=== PATIENT | male | born 1965 | race African-American/Black ===

== ENCOUNTER 2018-06-22 08:40 | Emergency (ER) | payer BC ==
[2018-06-22 08:51] VITALS: BP 142/72; PULSE 89; TEMP 97.6; BMI 40.4
[2018-06-22] MEDS ORDERED: KETOROLAC TROMETHAMINE 30 MG/1 ML VIAL IVPUSH STA (09:12)
[2018-06-22] MEDS ORDERED: KETOROLAC TROMETHAMINE 30 MG/1 ML VIAL ONE (09:35)
--- NOTE | 2018-06-22 09:50 | PDOC ---
History of Present Illness - General Chief Complaint: Pain, Acute Stated Complaint: PAIN Time Seen by Provider: 06/22/18 08:48 History Source: Patient Exam Limitations: No Limitations - History of Present Illness Travel History: No Initial Comments: 06/22/18 10:07 53-year-old male with history of acid reflux and diverticulitis presents to ED with right upper quadrant pain which he describes as a sharp gnawing discomfort since yesterday without aggravating or alleviating factors. Patient denies nausea, fever, chills, back pain, change in urine pattern, change in bowel pattern, abdominal distention, recent injury. Patient states he took no medication the above and came to the ER. Timing/Duration: reports: constant Quality: reports: moderate, sharpness, other Abdominal Pain Onset Location: reports: RUQ Pain Radiation: reports: no radiation Activities at Onset: reports: none Aggravating Factors: improves with: None Alleviating Factors: improves with: None Past History - Travel Traveled outside of the country in the last 30 days: No Close contact w/someone who was outside of country & ill: No - Past Medical History Allergies/Adverse Reactions: Allergies Allergy/AdvReac Type Severity Reaction Status Date / Time moxifloxacin [From Avelox] Allergy Verified 06/22/18 08:42 Home Medications: Ambulatory Orders NK [No Known Home Medication] 06/22/18 COPD: No CHF: No HTN: No Lung CA: No - Surgical History Gastric Stapling: No - Immunization History Immunization Up to Date: No - Suicide/Smoking/Psychosocial Hx Smoking History: Never smoked Have you smoked in the past 12 months: No Information on smoking cessation initiated: No Hx Alcohol Use: No Drug/Substance Use Hx: No Patient Lives Alone: No Lives with/in: spouse/SO Abd/GI Specific PMHX - Complaint Specific PMHX Diverticulitis: Yes GERD: Yes Review of Systems - Review of Systems Able to Perform ROS?: Yes Constitutional: No: Symptoms Reported HEENTM: No: Symptoms Reported Respiratory: No: Symptoms reported Cardiac (ROS): No: Symptoms Reported ABD/GI: Yes: Abdominal cramping : No: Symptoms Reported Musculoskeletal: No: Symptoms Reported Integumentary: No: Symptoms Reported Neurological: No: Symptoms reported Hematologic/Lymphatic: No: Symptoms Reported *Physical Exam - Vital Signs Last Vital Signs Temp Pulse Resp BP Pulse Ox 97.6 F 89 18 142/72 98 06/22/18 08:44 06/22/18 08:44 06/22/18 08:44 06/22/18 08:44 06/22/18 08:44 - Physical Exam General Appearance: Yes: Nourished, Appropriately Dressed. No: Apparent Distress HEENT: positive: Pharynx Normal. negative: Pale Conjunctivae Neck: positive: Supple. negative: Lymphadenopathy (R), Lymphadenopathy (L) Respiratory/Chest: positive: Lungs Clear, Normal Breath Sounds. negative: Chest Tender, Respiratory Distress, Accessory Muscle Use Cardiovascular: positive: Regular Rhythm, Regular Rate. negative: Murmur Gastrointestinal/Abdominal: positive: Normal Bowel Sounds, Soft, Tenderness ( right upper quad/ right epigastric. negative Glover sign). negative: Distended , Guarding, Rebound, Hernia, Mass Musculoskeletal: negative: CVA Tenderness Extremity: positive: Normal Capillary Refill. negative: Pedal Edema Integumentary: positive: Normal Color, Warm, Moist Neurologic: positive: Motor Strength 5/5 (ambulatory) Moderate Sedation - Procedure Monitoring Vital Signs: Procedure Monitoring Vital Signs Temperature 97.6 F 06/22/18 08:44 Pulse Rate 89 06/22/18 08:44 Respiratory Rate 18 06/22/18 08:44 Blood Pressure 142/72 06/22/18 08:44 O2 Sat by Pulse Oximetry (%) 98 06/22/18 08:44 ED Treatment Course - LABORATORY CBC & Chemistry Diagram: 06/22/18 09:40 06/22/18 09:40 Medical Decision Making - Medical Decision Making 06/22/18 11:23 Chief complaint: Right upper quadrant right epigastric pain which she describes a sharp gnawing pain for the past pain a half. No other complaints. On exam: Right upper quadrant right epigastric tenderness without distention or decreased bowel sounds. No CVA tenderness. Plan: Labs, urine, Toradol and chest x-ray 06/22/18 12:12 Laboratory Tests 06/22/18 06/22/18 06/22/18 09:40 09:40 09:40 WBC 6.4 Hgb 15.2 Hct 44.9 Plt Count 261 Neutrophils % 68.5 Sodium 137 Potassium 4.1 Chloride 102 Carbon Dioxide 28 Anion Gap 8 BUN 12 Creatinine 1.3 Creat Clearance w eGFR 58.20 Random Glucose 112 H Total Bilirubin 0.4 AST 24 ALT 53 Alkaline Phosphatase 90 Total Protein 7.4 Albumin 3.9 Total Amylase Lipase 115 Urine Blood 2+ H Urine Nitrite Negative Ur Leukocyte Esterase Negative Urine WBC (Auto) 2 Urine RBC (Auto) 10 06/22/18 09:40 WBC Hgb Hct Plt Count Neutrophils % Sodium Potassium Chloride Carbon Dioxide Anion Gap BUN Creatinine Creat Clearance w eGFR Random Glucose Total Bilirubin AST ALT Alkaline Phosphatase Total Protein Albumin Total Amylase 58 Lipase Urine Blood Urine Nitrite Ur Leukocyte Esterase Urine WBC (Auto) Urine RBC (Auto) spiral CT ordered 06/22/18 14:12 CT shows no obstructive uropathy identified. There is a 1 mm nonobstructing right renal calculus noted. Gallstones are seen without evidence of acute cholecystitis. If acute cholecystitis may not be demonstratable on CT. Inspissated bile/sludges noticed within the gallbladder lumen questionable biliary dyskinesia 06/22/18 16:03 Ultrasound shows cholelithiasis without sonographic evidence of acute cholecystitis. There is no definitive biliary tract dilatation. Patient also with diffuse hepatic steatosis. Patient be given a referral to a surgeon secondary to gallstones if symptoms worsen or continue patient also is aware to return to the ED. *DC/Admit/Observation/Transfer Diagnosis at time of Disposition: Gallstones without obstruction of gallbladder - Discharge Dispostion Disposition: HOME Condition at time of disposition: Good - Referrals Referrals: Leroy Theodore MD [Staff Physician] - - Patient Instructions Printed Discharge Instructions: DI for Gallstones Additional Instructions: Please avoid fatty greasy food and read over the notes about gallstones. I also have given your referral to a surgeon if your symptoms continue. But if your symptoms worsen please return to the nearest ED. - Post Discharge Activity
[2018-06-22 11:19] LABS: BASO % 0.4 % (0-2.0); EOS % 0.6 % (0-4.5); HEMATOCRIT 44.9 % (35.4-49); HEMOGLOBIN 15.2 GM/dL (11.7-16.9); LYMPH % 23.6 % (8-40); MCH 27.9 pg (25.7-33.7); MCHC 33.9 g/dl (32.0-35.9); MEAN CELL VOLUME 82.3 fl (80-96); MEAN PLT VOLUME 8.7 fl (7.5-11.1); MONO % 6.9 % (3.8-10.2); NEUT % 68.5 % (42.8-82.8); PLATELET COUNT 261 K/MM3 (134-434); RBC 5.46 M/mm3 (4.00-5.60); RDW 15.7 % (11.9-15.9); WHITE BLOOD COUNT 6.4 K/mm3 (4.0-10.0)
[2018-06-22 11:29] LABS: URINE APPEARANCE CLEAR; URINE BILIRUBIN NEGATIVE (<2.0 mg/dL); URINE COLOR YELLOW; URINE GLUCOSE (UA) NEGATIVE (NEGATIVE); URINE KETONE NEGATIVE (NEGATIVE); URINE LEUK ESTERASE NEGATIVE (NEGATIVE); URINE NITRITE NEGATIVE (NEGATIVE); URINE PROTEIN NEGATIVE (NEGATIVE); URINE UROBILINOGEN NEGATIVE mg/dL (0.2-1.0)
[2018-06-22 11:38] LABS: URINE MUCUS RARE
[2018-06-22 11:51] LABS: ALBUMIN 3.9 g/dl (3.4-5.0); ALK PHOS 90 U/L (45-117); ANION GAP 8 MMOL/L (8-16); BILIRUBIN,TOTAL 0.4 mg/dL (0.2-1); BLOOD UREA NITROGEN 12 mg/dL (7-18); CALCIUM 8.3 mg/dL (8.5-10.1); CHLORIDE 102 mmol/L (98-107); CO2 28 mmol/L (21-32); CREATININE 1.3 mg/dL (0.55-1.3); GLUCOSE,RANDOM 112 mg/dL (74-106); LIPASE 115 U/L (73-393); POTASSIUM 4.1 mmol/L (3.5-5.1); SGOT/AST 24 U/L (15-37); SGPT/ALT 53 U/L (13-61); SODIUM 137 mmol/L (136-145); TOT PROT 7.4 g/dl (6.4-8.2)
--- NOTE | 2018-06-25 12:51 | EKG ---
Test Reason : Blood Pressure : / mmHG Vent. Rate : 088 BPM Atrial Rate : 088 BPM P-R Int : 172 ms QRS Dur : 078 ms QT Int : 324 ms P-R-T Axes : 064 035 036 degrees QTc Int : 392 ms NORMAL SINUS RHYTHM POSSIBLE LEFT ATRIAL ENLARGEMENT BORDERLINE ECG NO PREVIOUS ECGS AVAILABLE Confirmed by OSMANY LAWS, WESLY ([id number]) on 06/25/2018 12:51:11 PM Referred By: Confirmed By:WESLY CERON MD
== END 2018-06-22 16:43 | disposition home or self-care (01) ==
LOC: JER 08:40
PROC: 3E0333Z Introduction of Anti-inflammatory into Peripheral Vein, Percutaneous Approach (ICD-10-PCS; principal; 2018-06-22)
DX: K80.80 Other cholelithiasis without obstruction (principal)
CPT/HCPCS: 36415; 71045-TC-FY; 74176; 76705-TC; 80053; 81003; 81015; 82150; 83690; 85025; 93005; 93010; 99283-25